=== PATIENT | female | born 1990 | race African-American/Black ===

== ENCOUNTER 2017-05-07 03:28 | Inpatient (IN) | payer SELFPAY ==
[2017-05-07] VITALS (16 sets, daily range): BP systolic 111–136; BP diastolic 57–90; PULSE 70–87; RESP 16–20; TEMP 98–98.6; O2SAT 99–100
[~2017-05-07] VITALS: Ht 167.6 cm; Wt 75.0 kg
[2017-05-07] MEDS ORDERED: NALOXONE HCL 2 MG/2 ML VIAL ONE (03:38)
[2017-05-07] MEDS ORDERED: SODIUM CHLOR 0.9% 1000 ML INJ 1,000 ML IV SCH ×2 (03:49→05:47)
--- NOTE | 2017-05-07 03:49 | PD ---
HPI Chief Complaint: OD/ Ingestion Time Seen by Provider: 03:49 Travel History International Travel<30 days: No Contact w/Intl Traveler<30days: No Traveled to known affect area: No History of Present Illness HPI 26-year-old female came to the emergency room with history of being found unresponsive in a bar. The macroeconomics professor who was watching her drink alcohol called 911. As per the macroeconomics professor she was drinking a lot and he was watching her. Patient was on the floor unresponsive with a GCS of 3 when EMS arrived. They gave her 2 mg of Narcan which made her GCS go up to 9-10. As per them she had vomited several times on route. No other history is available at this time. Vital signs were stable. When patient arrived her GCS was 8. PFSH Past Medical History Narrative Medical List of her past medical, surgical, social and family history is reviewed from the nursing note. Asthma: Yes Social History Alcohol Use: No Tobacco Use: No Substance Use: No Allergies-Medications (Allergen,Severity, Reaction): Coded Allergies: banana (Unverified Allergy, Mild, 02/23/17) tomato (Unverified Allergy, Unknown, 02/23/17) Uncoded Allergies: melons (Allergy, Unknown, rash, 07/01/15) Comments List of her allergies reviewed from the nursing note. Reported Meds & Prescriptions Reported Meds & Active Scripts Active No Active Prescriptions or Reported Medications Narrative Medication List of her home medications reviewed from the nursing note. Review of Systems ROS Limitations: Unresponsive Except as stated in HPI: all other systems reviewed are Neg Physical Exam Narrative GENERAL: Unresponsive, drooling SKIN: Focused skin assessment warm/dry. HEAD: Atraumatic. Normocephalic. EYES: Pupils equal and round. No scleral icterus. No injection or drainage. ENT: No nasal bleeding or discharge. Mucous membranes pink and moist. No drooling, poor gag reflex NECK: Trachea midline. No JVD. CARDIOVASCULAR: Regular rate and rhythm. No murmur appreciated. RESPIRATORY: No accessory muscle use. Clear to auscultation. Breath sounds equal bilaterally. GASTROINTESTINAL: Abdomen soft, non-tender, nondistended. Hepatic and splenic margins not palpable. MUSCULOSKELETAL: No obvious deformities. No clubbing. No cyanosis. No edema. NEUROLOGICAL: GCS of 8 PSYCHIATRIC: Unable to assess Data Data Last Documented VS Vital Signs Date Time Temp Pulse Resp B/P (MAP) Pulse Ox O2 Delivery O2 Flow Rate FiO2 05/07/17 05:00 99 40 05/07/17 04:20 87 16 135/90 (105) Ventilator 05/07/17 03:46 98.0 Orders Orders Naloxone Inj (Narcan Inj) (05/07/17 03:38) Electrocardiogram (05/07/17 03:49) Complete Blood Count With Diff (05/07/17 03:49) Comprehensive Metabolic Panel (05/07/17 03:49) Creatine Kinase (Cpk) (05/07/17 03:49) Prothrombin Time / Inr (Pt) (05/07/17 03:49) Troponin I (05/07/17 03:49) Urinalysis - C+S If Indicated (05/07/17 03:49) Lactic Acid Sepsis Protocol (05/07/17 03:49) Arterial Blood Gas (Abg) (05/07/17 03:49) Blood Culture (05/07/17 03:49) Chest, Single Ap (05/07/17 03:49) Ct Brain W/O Iv Contrast(Rout) (05/07/17 03:49) Blood Glucose (05/07/17 03:49) Ecg Monitoring (05/07/17 03:49) Iv Access Insert/Monitor (05/07/17 03:49) Oximetry (05/07/17 03:49) Naloxone Inj (Narcan Inj) (05/07/17 04:00) Sodium Chloride 0.9% Flush (Ns Flush) (05/07/17 04:00) Sodium Chlor 0.9% 1000 Ml Inj (Ns 1000 M (05/07/17 03:49) Drug Screen, Random Urine (05/07/17 03:49) Alcohol (Ethanol) (05/07/17 03:49) Tylenol (Acetaminophen) (05/07/17 03:49) Salicylates (Aspirin) (05/07/17 03:49) Ed Urine Pregnancytest Poc (05/07/17 03:49) Urinary Catheter Insert/Apply (05/07/17 03:51) Lázaro-Gastric Tube Insert/Mon (05/07/17 03:51) Propofol 1000 Mg/100 Ml Inj (Diprivan 10 (05/07/17 04:00) ^ Infusion (05/07/17 03:51) RASS (05/07/17 03:51) Neurological Rass Scale BONI.Q2H (05/07/17 03:51) Rocuronium Inj (Zemuron Inj) (05/07/17 04:45) Succinylcholine Inj (Quelicin Inj) (05/07/17 04:45) Etomidate Inj (Amidate Inj) (05/07/17 04:45) Labs Laboratory Tests Test 05/07/17 03:55 05/07/17 04:00 05/07/17 04:36 White Blood Count 6.8 TH/MM3 Red Blood Count 3.88 MIL/MM3 Hemoglobin 11.5 GM/DL Hematocrit 35.0 % Mean Corpuscular Volume 90.2 FL Mean Corpuscular Hemoglobin 29.7 PG Mean Corpuscular Hemoglobin Concent 32.9 % Red Cell Distribution Width 13.4 % Platelet Count 212 TH/MM3 Mean Platelet Volume 9.6 FL Neutrophils (%) (Auto) 60.0 % Lymphocytes (%) (Auto) 30.5 % Monocytes (%) (Auto) 4.7 % Eosinophils (%) (Auto) 4.2 % Basophils (%) (Auto) 0.6 % Neutrophils # (Auto) 4.1 TH/MM3 Lymphocytes # (Auto) 2.1 TH/MM3 Monocytes # (Auto) 0.3 TH/MM3 Eosinophils # (Auto) 0.3 TH/MM3 Basophils # (Auto) 0.0 TH/MM3 CBC Comment DIFF FINAL Differential Comment Prothrombin Time 10.8 SEC Prothromb Time International Ratio 1.0 RATIO Urine Color LIGHT-YELLOW Urine Turbidity CLEAR Urine pH 5.0 Urine Specific [place] 1.008 Urine Protein NEG mg/dL Urine Glucose (UA) NEG mg/dL Urine Ketones NEG mg/dL Urine Occult Blood NEG Urine Nitrite NEG Urine Bilirubin NEG Urine Urobilinogen LESS THAN 2.0 MG/DL Urine Leukocyte Esterase NEG Urine WBC 2 /hpf Urine Mucus FEW /lpf Microscopic Urinalysis Comment CATH-CULT NOT IND Blood Urea Nitrogen 13 MG/DL Creatinine 0.80 MG/DL Random Glucose 109 MG/DL Total Protein 7.5 GM/DL Albumin 3.8 GM/DL Calcium Level 8.9 MG/DL Alkaline Phosphatase 65 U/L Aspartate Amino Transf (AST/SGOT) 16 U/L Alanine Aminotransferase (ALT/SGPT) 23 U/L Total Bilirubin 0.1 MG/DL Sodium Level 139 MEQ/L Potassium Level 3.3 MEQ/L Chloride Level 107 MEQ/L Carbon Dioxide Level 22.2 MEQ/L Anion Gap 10 MEQ/L Estimat Glomerular Filtration Rate 104 ML/MIN Total Creatine Kinase 97 U/L Troponin I LESS THAN 0.02 NG/ML Salicylates Level LESS THAN 1.7 MG/DL Urine Opiates Screen NEG Acetaminophen Level LESS THAN 2.0 MCG/ML Urine Barbiturates Screen NEG Urine Amphetamines Screen NEG Urine Benzodiazepines Screen NEG Urine Cocaine Screen NEG Urine Cannabinoids Screen NEG Ethyl Alcohol Level 220 MG/DL Lactic Acid Level 2.8 mmol/L Blood Gas Puncture Site RT BRACHIAL Blood Gas Patient Temperature 98.6 Blood Gas HCO3 15 mmol/L Blood Gas Base Excess -9.5 mmol/L Blood Gas Oxygen Saturation 96 % Arterial Blood pH 7.39 Arterial Blood Partial Pressure CO2 24 mmHg Arterial Blood Partial Pressure O2 87 mmHG Arterial Blood Oxygen Content 11.3 Vol % Arterial Blood Carboxyhemoglobin 1.0 % Arterial Blood Methemoglobin 0.5 % Blood Gas Hemoglobin 8.3 G/DL Oxygen Delivery Device VENTILATOR Blood Gas Ventilator Setting PRVC /AC / Blood Gas Inspired Oxygen 40 % MDM Medical Decision Making Medical Screen Exam Complete: Yes Emergency Medical Condition: Yes Medical Record Reviewed: Yes Interpretation(s) Twelve-lead EKG was reviewed by me. Normal sinus rhythm, normal axis, nonspecific ST-T wave changes. Heart rate of 80 bpm. Differential Diagnosis Acute EtOH intoxication, substance overdose, intracranial bleed, metabolic abnormality. Narrative Course 5 AM I patient was given 2 mg of Narcan at which point her GCS improved to 12. However soon after that it started to go down again. I gave 2 more milligrams but soon after patient started to vomit. At this point I decided to intubate her to protect her airway given her significant somnolence and inability to handle her airway. Please refer to my procedure note. Patient tolerated the procedure well. Post intubation chest x-ray showed the tubes to be in good position. Her lactic acid is elevated and her bicarbonate is low and her blood gas. In my opinion all these are from alcohol intoxication. She is getting IV fluid bolus. I have made an setting changes. Her potassium is low and I will order for placement. Awaiting for the manager data center to call back for admission. Also waiting for head CT to be done and resulted. Critical Care Narrative Aggregate critical care time was 60 minutes. Time to perform other separately billable procedures was not included in the critical care time. My time did not include minutes spent treating any other patients simultaneously or on activities that did not directly contribute to the patient's treatment. The services I provided to this patient were to treat and/or prevent clinically significant deterioration that could result in: Altered mental status, severe alcohol intoxication, respiratory failure, ventilator management I provided critical care services requiring my management, as noted below: Chart data review, documentation time, medication orders and management, vital sign assessments/reviewing monitor data, ordering and reviewing lab tests, ordering and interpreting/reviewing x-rays and diagnostic studies, care of the patient and discussion of the patient with the admitting physicians. Procedures Procedure Narrative After the risks and benefits were discussed the following procedure was performed: INTUBATION: The patient was put in optimal position for the procedure. Rapid sequence intubation was initiated by me using 20 milligrams of etomidate IV and 100 milligrams of succinylcholine IV. The patient was intubated with a 7.5 cuffed endotracheal tube. Tube placement was confirmed by visualization of the tube and balloon passing through the cords, capnometry and subsequent chest x-ray. Breath sounds were equal and well aerated bilaterally postintubation. No breath sounds over stomach. Patient tolerated procedure well. EKG Prior to Arrival: No Physician Communication Physician Communication Dr. Robins Diagnosis Primary Impression: Altered mental state Qualified Codes: R40.1 - Stupor Additional Impressions: Respiratory failure Qualified Codes: J96.00 - Acute respiratory failure, unspecified whether with hypoxia or hypercapnia Acute alcohol intoxication Qualified Codes: F10.929 - Alcohol use, unspecified with intoxication, unspecified Admitting Information Admitting Physician Requests: Admit Scripts No Active Prescriptions or Reported Meds Kiran Andrews MD May 07, 2017 03:49
[2017-05-07] MEDS ORDERED: SODIUM CHLORIDE 0.9% FLUSH 5 ML FLUSH IV FLUSH PRN (04:00)
[2017-05-07] MEDS: PROPOFOL 1000 MG/100 ML INJ 100 ML IV PRN ×2 (04:00→06:50)
[2017-05-07] MEDS ORDERED: NALOXONE HCL 2 MG/2 ML VIAL IV PUSH ONE (04:00)
[2017-05-07 04:22] LABS: BLOOD, URINE NEG (NEG); GLUCOSE,URINE NEG (NEG); KETONE, URINE NEG (NEG); MUCUS URINE FEW /lpf (OCC); NITRITE,URINE NEG (NEG); URINE COLOR LIGHT-YELLOW (YELLW/STRAW)
[2017-05-07 04:23] LABS: AUTOMATED NEUTROPHIL # 4.1 TH/MM3 (1.8-7.7); BASOPHIL % 0.6 % (0.0-2.0); COMMENT (UR) CATH-CULT NOT IND; CULTURE IF INDICATED CATH CULTURE NOT IND; EOSINOPHIL # 0.3 TH/MM3 (0-0.4); EOSINOPHIL % 4.2 % (0.0-4.0); HEMO FLAGS DIFF FINAL; LYMPH % 30.5 % (9.0-44.0); LYMPHOCYTE # 2.1 TH/MM3 (1.0-4.8); MEAN CELL VOLUME 90.2 FL (80.0-100.0); MEAN CORPUSCULAR HEMOGLOBIN 29.7 PG (27.0-34.0); MEAN CORPUSCULAR HGB CONC 32.9 % (32.0-36.0); MONO % 4.7 % (0.0-8.0); PLATELET COUNT 212 TH/MM3 (150-450); RED BLOOD COUNT 3.88 MIL/MM3 (4.00-5.30); RED CELL DISTRIBUTION WIDTH 13.4 % (11.6-17.2); WHITE BLOOD COUNT 6.8 TH/MM3 (4.0-11.0)
[2017-05-07 04:29] LABS: PROTHROMBIN TIME - PATIENT 10.8 SEC (9.8-11.6)
[2017-05-07 04:41] LABS: ALKALINE PHOSPHATASE 65 U/L (45-117); ALT (GPT) 23 U/L (10-53); ANION GAP 10 MEQ/L (5-15); AST (GOT) 16 U/L (15-37); BICARBONATE 22.2 MEQ/L (21.0-32.0); BLOOD UREA NITROGEN 13 MG/DL (7-18); CHLORIDE 107 MEQ/L (98-107); GLOMERULAR FILTRATION RATE 104 ML/MIN (>89); POTASSIUM 3.3 MEQ/L (3.5-5.1); SODIUM (NA) 139 MEQ/L (136-145); TOTAL BILIRUBIN ADULT 0.1 MG/DL (0.2-1.0)
[2017-05-07 04:43] LABS: CREATINE KINASE 97 U/L (26-192)
[2017-05-07 04:44] LABS: ACETAMINOPHEN LESS THAN 2.0 MCG/ML (10.0-30.0); ALCOHOL 220 MG/DL (0-5)
[2017-05-07] MEDS ORDERED: ETOMIDATE 20 MG/10 ML VIAL IV PUSH ONE (04:45)
[2017-05-07] MEDS ORDERED: SUCCINYLCHOLINE CHLORIDE 100 MG/5 ML SYRINGE IV PUSH ONE (04:45)
[2017-05-07] MEDS ORDERED: ROCURONIUM INJ 100 MG/10 ML VIAL IV ONE (04:45)
[2017-05-07 04:49] LABS: BLOOD GAS BASE EXCESS -9.5 mmol/L (-2-2); BLOOD GAS HCO3 15 mmol/L (22-26); BLOOD GAS METHEMOGLOBIN 0.5 % (0-2); BLOOD GAS O2 HGB SATURATION 96 % (90-100); BLOOD GAS OXYGEN CONTENT 11.3 Vol % (12.0-20.0); BLOOD GAS PCO2 24 mmHg (38-42); BLOOD GAS PO2 87 mmHG (61-120); BLOOD GAS TOTAL HGB 8.3 G/DL (12.0-16.0); CRITICAL VALUE YES; OXYGEN DEVICE VENTILATOR; TEMP CORR TO 98.6
[2017-05-07 04:50] LABS: DRAW SITE RT BRACHIAL; FIO2 40 %; NUMBER OF ARTERIAL PUNCTURES 2; STAT YES; VENT SETTINGS PRVC /AC /
--- NOTE | 2017-05-07 04:54 | RADRPT ---
EXAM DATE/TIME: 05/07/2017 04:08 [facility] COMPARISON: CHEST PA & LAT, July 01, 2015, 15:43. INDICATIONS : Tube placement, and syncope. MEDICAL HISTORY : None. SURGICAL HISTORY : None. ENCOUNTER: Initial ACUITY: 1 day PAIN SCORE: Non-responsive. LOCATION: Bilateral chest FINDINGS: No infiltrate, effusion or pneumothorax. Heart size stable, normal. Endotracheal tube tip is approximately 25 mm above the moni. Nasogastric tube tip is in the stomach . CONCLUSION: Appropriate endotracheal tube and nasogastric tube positions as above. Clear lungs. Manohar Carrillo MD on May 07, 2017 at 4:51 Board Certified Radiologist. This report was verified electronically.
[2017-05-07] MEDS ORDERED: POTASSIUM CHLOR 20 MEQ PREMIX 100 ML IV ONE (05:30)
[2017-05-07] MEDS ORDERED: MIDAZOLAM HCL 5 MG/ML VIAL (1 ML) ONE (05:40)
[2017-05-07] MEDS ORDERED: ENOXAPARIN SODIUM 40 MG/0.4 ML SYRINGE SQ SCH (06:00)
[2017-05-07] MEDS ORDERED: CHLORHEXIDINE GLUCONATE 2 % 1 PACK (2 CLOTHS) TOP PRN (06:00)
[2017-05-07] MEDS ORDERED: SODIUM CHLORIDE 0.9% FLUSH 10 ML FLUSH IV FLUSH PRN (06:00)
[2017-05-07] MEDS ORDERED: MISCELLANEOUS NURSING INFORMATION XX SCH (06:00)
[2017-05-07] MEDS ORDERED: ACETAMINOPHEN 325 MG TAB PO PRN (06:00)
[2017-05-07] MEDS ORDERED: RESP: ALBUTEROL 2.5 MG/IPRATROPIUM 0.5 MG NEB (PRN) INH (06:00)
--- NOTE | 2017-05-07 06:06 | RADRPT ---
EXAM DATE/TIME: 05/07/2017 05:41 [facility] COMPARISON: No previous studies available for comparison. INDICATIONS : Altered mental status. Possible overdose. RADIATION DOSE: 56.35 CTDIvol (mGy) MEDICAL HISTORY : Non-responsive. SURGICAL HISTORY : Non-responsive. ENCOUNTER: Initial ACUITY: 1 day PAIN SCALE: Non-responsive LOCATION: cranial TECHNIQUE: Multiple contiguous axial images were obtained of the head. Using automated exposure control and adj ustment of the mA and/or kV according to patient size, radiation dose was kept as low as reasonably a chievable to obtain optimal diagnostic quality images. DICOM format image data is available electro nically for review and comparison. FINDINGS: CEREBRUM: The ventricles are normal for age. No evidence of midline shift, mass lesion, hemorrhage or acute in farction. No extra-axial fluid collections are seen. POSTERIOR FOSSA: The cerebellum and brainstem are intact. The 4th ventricle is midline. The cerebellopontine angle i s unremarkable. EXTRACRANIAL: 19 mm mucous retention cyst seen of the right maxillary air cell. SKULL: The calvaria is intact. No evidence of skull fracture. CONCLUSION: Negative noncontrast head CT. Orogastric tube is coiled in the posterior pharynx. Manohar Carrillo MD on May 07, 2017 at 6:04 Board Certified Radiologist. This report was verified electronically.
[2017-05-07 06:14] LABS: LACTIC ACID GHOST NOT REPORTABLE
[2017-05-07] MEDS ORDERED: MIDAZOLAM HCL 5 MG/ML VIAL (1 ML) IV SCH (07:00)
[2017-05-07] MEDS ORDERED: CHLORHEXIDINE 0.12% (ORAL KIT) 15 ML CUP MT SCH (08:00)
[2017-05-07] MEDS ORDERED: FAMOTIDINE 20 MG TAB TUBE SCH (09:00)
[2017-05-07] MEDS ORDERED: SODIUM CHLORIDE 0.9% FLUSH 10 ML FLUSH IV FLUSH SCH (09:00)
--- NOTE | 2017-05-07 10:18 | HHI.DS ---
Discharge Summary Admission Date May 07, 2017 at 05:24 Discharge Date: May 07, 2017 Admitting Diagnosis altered mental status, respiratory failure, acute alcohol intoxicati (1) Acute alcohol intoxication ICD Code: F10.929 - Alcohol use, unspecified with intoxication, unspecified Status: Acute (2) Respiratory failure ICD Code: J96.90 - Respiratory failure, unspecified, unspecified whether with hypoxia or hypercapnia Status: Acute (3) Altered mental state ICD Code: R41.82 - Altered mental status, unspecified Status: Acute Brief History Arrived intoxicated and in respiratory failure. Required mechanical ventilation until she metabolized the ETOH. Extubated 1000 hrs. Discharge home. CBC/BMP: 05/07/17 0355 05/07/17 0355 Significant Findings Laboratory Tests Test 05/07/17 03:55 05/07/17 04:00 05/07/17 04:36 Red Blood Count 3.88 MIL/MM3 (4.00-5.30) Hemoglobin 11.5 GM/DL (11.6-15.3) Eosinophils (%) (Auto) 4.2 % (0.0-4.0) Urine Mucus FEW /lpf (OCC) Random Glucose 109 MG/DL (74-106) Total Bilirubin 0.1 MG/DL (0.2-1.0) Potassium Level 3.3 MEQ/L (3.5-5.1) Troponin I LESS THAN 0.02 NG/ML Salicylates Level LESS THAN 1.7 MG/DL Acetaminophen Level LESS THAN 2.0 MCG/ML Ethyl Alcohol Level 220 MG/DL (0-5) Lactic Acid Level 2.8 mmol/L (0.4-2.0) Blood Gas HCO3 15 mmol/L (22-26) Blood Gas Base Excess -9.5 mmol/L (-2-2) Arterial Blood Partial Pressure CO2 24 mmHg (38-42) Arterial Blood Oxygen Content 11.3 Vol % (12.0-20.0) Blood Gas Hemoglobin 8.3 G/DL (12.0-16.0) PE at Discharge Lungs: Clear; Neuro: O X 3, GCS 15. move 4 limbs 5/5. Cooperative. Conversant. Pt Condition on Discharge: Good Discharge Disposition: Discharge Home Discharge Instructions DIET: Follow Instructions for: As Tolerated, No Restrictions Activities you can perform: Regular-No Restrictions Jean-Pierre Protillo MD May 07, 2017 10:18
--- NOTE | 2017-05-07 19:26 | EKG ---
Date Performed: 05/07/2017 Time Performed: 04:40:12 PTAGE: 26 years EKG: Sinus rhythm NORMAL ECG NO PREVIOUS TRACING DOCTOR: Gurdeep Rubio Interpretating Date/Time 05/07/2017 19:24:48
[2017-05-08] MEDS ORDERED: CHLORHEXIDINE GLUCONATE 2 % 1 PACK (2 CLOTHS) TOP SCH (04:00)
== END 2017-05-07 11:55 | disposition home or self-care (01) | DRG 896 ==
LOC: NEPC 03:28 → NEDA 05:24 → N03B 06:26
PROVIDERS: ADMIT Internal Medicine Critical Care Medicine; ATTEND Internal Medicine Critical Care Medicine
PROC: 0BH17EZ Insertion of Endotracheal Airway into Trachea, Via Natural or Artificial Opening (ICD-10-PCS; principal; 2017-05-07)
PROC: 5A1935Z Respiratory Ventilation, Less than 24 Consecutive Hours (ICD-10-PCS; 2017-05-07)
DX: F10.120 Alcohol abuse with intoxication, uncomplicated (principal); J96.00 Acute respiratory failure, unspecified whether with hypoxia or hypercapnia; J45.909 Unspecified asthma, uncomplicated; R40.2431 Glasgow coma scale score 3-8, in the field [EMT or ambulance]; Y90.7 Blood alcohol level of 200-239 mg/100 ml
CPT/HCPCS: 31500; 36600; 43753; 51702; 70450; 71010; 80053; 80307; 81001; 82550; 82805; 83605; 84484; 84703; 85025; 85610; 87040; 93005; 94002; 94003; 96365; 96375; J0330; J2250; J2310; J3480; J7030